=== PATIENT | female | born 1930 | race Caucasian/White ===

== ENCOUNTER 2016-07-08 15:26 | Emergency (ER) | payer MEDICARE, OTHER ==
[~2016-07-08] VITALS: Ht 157.5 cm; Wt 68.2 kg
[~2016-07-08 15:26] MED LIST: ASPI-973 PO; CHOL200047 PO; LOSA25TA21 PO; MAGN250T29 PO; METO-272 PO; NITR0.4T SL; SIMV40TA5 PO; WARF3TAB7 PO
[2016-07-08 15:39] VITALS: BP 110/60; PULSE 115; PULSE 139; RESP 19; O2SAT 97
[2016-07-08 16:04] VITALS: BP 105/68; PULSE 132; RESP 20; O2SAT 98
--- NOTE | 2016-07-08 16:57 | ED.REPORT ---
HPI-Chest Pain 40 and Over Date of Service July 08, 2016 ED Provider: Preston Arriola MD The patient is an 86 year old female with history of coronary artery disease and atrial fibrillation s/p pacemaker was sent to the emergency department for tachycardia. The patient was at diagnostics this morning at 1100 for a stress test. She did not take any of her normal morning medication due to the stress test. She was sent to the emergency department from her stress test for tachycardia. The patient denies palpitations, chest pain, shortness of breath, fever, chills, cough, nausea, vomiting or diaphoresis. She is not able to feel if she is in atrial fibrillation. Nursing Notes Stated Complaint: TACHYCARDIA Chief Complaint: Dysrhythmia/Cardiac Nursing Notes Reviewed: Yes Allergies: Coded Allergies: Penicillins (Verified Allergy, Severe, hives, 07/08/16) Scheduled Aspirin (Aspirin) 81 Mg Tablet 81 MG PO DAILY Cholecalciferol (Vitamin D3) (Vitamin D3) 2,000 Unit Capsule 2,000 UNIT PO DAILY Losartan Potassium (Losartan Potassium) 25 Mg Tablet 25 MG PO BID Magnesium Oxide (Magnesium) 250 Mg Tablet 250 MG PO DAILY Metoprolol Succinate ER (Metoprolol Succinate ER) 50 Mg Tab.er.24h 50 MG PO BID Simvastatin (Simvastatin) 40 Mg Tablet 40 MG PO DAILY Warfarin Sodium (Warfarin Sodium) 3 Mg Tablet 3 MG PO Daily except Thu Warfarin Sodium (Warfarin Sodium) 3 Mg Tablet 6 MG PO THURSDAY Scheduled PRN Nitroglycerin SL (Nitrostat) 0.4 Mg Tab.subl 0.4 MG SL Q5MIN PRN PRN For Chest Pain General Time Seen by MD: 16:55 Chief Complaint Other (tachycardia) Hx Obtained From: Patient, Daughter Arrived By: Walk-in Sudden in Onset?: Yes Onset Occurred: 5 - 8 hours ago Symptom Duration: Since onset Severity: Current: No pain currently Severity: Maximum: No pain Recent Healthcare: No recent hospitalization, Recent doctor visit Similar Sx Previous: Yes Past Medical History Past Medical History Reports: Coronary artery disease Reports: Atrial fibrillation Past Surgical History Reports: Pacemaker insertion Family History Noncontributory Smoking History Never Smoker Social History Other Social History: Good social support, Local resident Ambulatory Status Independent Review of Systems Review of Systems Note: +elevated heart rate Constitutional: Denies: Chills, Fever Respiratory: Denies: Non-productive cough, Prod cough, bloody, Prod cough, brown, Prod cough, clear, Prod cough, green, Prod cough, white, Prod cough, yellow, Shortness of breath Cardiovascular: Denies: Chest pain, Palpitations GI: Denies: Nausea, Vomiting Skin: Denies Diaphoresis Complete sys rev & neg: except as marked. Physical Exam Initial Vital Signs Vital Signs (First) Date Time Temp Pulse Resp B/P Pulse Ox O2 Delivery O2 Flow Rate FiO2 07/08/16 15:39 36.7 115 19 110/60 97 Room Air Initial VS: Reviewed Head / Eyes: Atraumatic, Normocephalic, PERRL ENT: Mucous membranes moist, Conjunctiva normal, No scleral icterus Neck: Supple, Non-tender, Full range of motion Lymphatic: No lymphadenopathy Extremities: Vascular intact, Neuro intact, No swelling, No tenderness Skin: Warm, Dry, No cyanosis Neurologic: Alert, Oriented, Nonfocal Psychiatric: Mood/affect normal, Behavior normal, Normal thought content General/Constitutional: Awake, Alert, No acute distress, Well appearing Respiratory / Chest: Atraumatic, Breath sounds NL, Breath sounds = bilat, No respiratory distress, No rales, No rhonchi, No wheezing, No stridor, No chest tenderness Cardiovascular: Heart sounds NL Heart Rate / Rhythm: Positive: Irregular rhythm, Tachycardia Abdomen: Atraumatic, Soft, Non-tender, McBurney's non-tender, No guarding, No rebound, BS normoactive, No distention, No hernia, No palpable mass Interpretation & Diagnostics Lab Results Interpretation Result Diagram: 07/08/16192007/08/161920 Test 07/08/16 19:21 White Blood Count 8.5th/mm3 (3.8-10.1) Red Blood Count 4.70mil/mm3 (3.90-5.20) Hemoglobin 14.0g/dL (12.0-15.6) Hematocrit 42.8% (35.0-46.0) Mean Corpuscular Volume 91.1fL (81-100) Mean Corpuscular Hemoglobin 29.8pg (27.0-35.0) Mean Corpuscular Hemoglobin Concent 32.7% (32.0-37.0) Red Cell Distribution Width 15.0% (12.3-15.4) Platelet Count 250bil/L (150-400) Neutrophils (%) (Auto) 58.2% (40-74) Lymphocytes (%) (Auto) 27.9% (14-46) Monocytes (%) (Auto) 11.3% (4-12) Eosinophils (%) (Auto) 1.6% (0-5) Basophils (%) (Auto) 0.6% (0-3) Prothrombin Time 21.0sec (8.1-12.5) Prothromb Time International Ratio 1.94ratio Sodium Level 139mEq/L (134-144) Potassium Level 4.1mEq/L (3.5-5.2) Chloride Level 104mEq/L (97-108) Carbon Dioxide Level 21mmol/L (18-29) Blood Urea Nitrogen 32mg/dL (8-27) Creatinine 1.09mg/dL (0.57-1.00) Estimat Glomerular Filtration Rate 68mL/min (>59) Glucose Level 83mg/dL (60-99) Calcium Level 9.4mg/dL (8.5-10.1) Total Bilirubin 0.6mg/dL (0.0-1.2) Aspartate Amino Transf (AST/SGOT) 23U/L (0-50) Alanine Aminotransferase (ALT/SGPT) 13U/L (0-32) Alkaline Phosphatase 56U/L (25-165) Total Protein 6.4g/dL (6.4-8.4) Albumin 3.5g/dL (3.4-5.0) Hold Paredes Top Tube Received (Received) ECG Interpretation ECG Interpretation: Atrial flutter with a rate of 125 Time: 15:43 Interpreted by: ED physician Re-Eval/Medical Decision Source of Hx: Old records, Family Time of Eval: 18:24 Re-Evaluation/Progress Note: Discussed plan for electrical cardioversion with the patient and her daughter. They would like to discuss this together before making a decision. Time of Eval: 19:00 Re-Evaluation/Progress Note: Dr. Koch examined the patient. He would like labs ordered. The patient would like to go home, Dr. Koch is okay with that if her labs look good. Re-Evaluation/Progress Note: Rechecked the patient. Discussed plan for discharge. All questions were addressed. Consultation : Referral / Consult Name: Chanelle Koch MD Consulted With: Cardiology Call Returned at: 17:35 Sales Driver: Agrees with [place], Agrees with plan Note: He would like the patient to be electrocardioverted. Counseled Regarding: Diagnosis, Lab results, Need for follow-up, When/why to return to ED Discharge & Departure Primary Impression: Atrial flutter with rapid ventricular response Disposition: Home Discharge Condition All VS Reviewed: Yes Condition: Stable Patient Instructions: Atrial Flutter (ED) Additional Instructions: Thank you for entrusting us with your care today. Your EKG and examination today is reassuring. Take your medications as prescribed by Dr. Koch. 3 times daily metoprolol was my understanding. Call Dr. Koch's office tomorrow to schedule a followup appointment. Your warfarin level was little low so call the clinic in the morning for their advice as to how to dose your warfarin. Return here for any new or concerning symptoms such as shortness of breath, fainting, chest pain. Referrals: Tom Lora MD (PCP) Chanelle Koch MDibkeisha Attestation Portions of this note were transcribed by Hiral De Leon. I, Dr. Arriola personally performed the history, physical exam and medical decision-making; I reviewed and confirmed the accuracy of the information in the transcribed note. Signed by: Stefania Mathur, 07/08/2016 at 2030. copies to: Chanelle Koch MD; Tom Lora MD, Kirk H MD July 08, 2016 16:57 Hiral De Leon July 08, 2016 17:04
[2016-07-08 17:27] VITALS: BP 113/73; PULSE 120; RESP 16; O2SAT 94
[2016-07-08 19:21] VITALS: BP 114/78; PULSE 101; RESP 20; O2SAT 96
[2016-07-08 19:39] LABS: BASOPHILS % (AUTO) 0.6 % (0-3); EOSINOPHILS % (AUTO) 1.6 % (0-5); MONOCYTES % (AUTO) 11.3 % (4-12); Mean Corpuscular Hemoglobin 29.8 pg (27.0-35.0); Mean Corpuscular Volume 91.1 fL (81-100); NEUTROPHILS % (AUTO) 58.2 % (40-74); Platelet Count 250 bil/L (150-400)
[2016-07-08 19:55] LABS: INR 1.94 ratio
[2016-07-08 20:08] VITALS: BP 126/63; PULSE 113; RESP 16; O2SAT 95
[2016-07-08 20:45] VITALS: BP 126/63; PULSE 116; RESP 19; O2SAT 94
== END 2016-07-08 20:36 | disposition home or self-care (01) ==
LOC: SED 15:26
DX: I48.92 Unspecified atrial flutter (principal); I25.10 Atherosclerotic heart disease of native coronary artery without angina pectoris; I48.91 Unspecified atrial fibrillation; Z95.0 Presence of cardiac pacemaker; Z79.82 Long term (current) use of aspirin; Z79.01 Long term (current) use of anticoagulants; Z88.0 Allergy status to penicillin